=== PATIENT | female | born 1950 | race Caucasian/White ===

== ENCOUNTER 2016-09-30 08:16 | Day surgery (SDC) | payer MEDICARE ==
[~2016-09-30 08:16] MED LIST: Buffered Lidocaine 0.9% SYRIN* 5 ML/SYR SYRINGE INTRADERM ONE; Famotidine TAB* 20 MG PO ONE; Metoclopramide TAB* 10 MG PO ONE; Scopolamine 1.5 mg* PATCH TRANSDERM ONE
[2016-09-30] MEDS ORDERED: Heparin VIAL(*) 5000 UNITS/ML VIAL (FIVE THOUSAND) ONE (08:17)
[2016-09-30] MEDS ORDERED: Famotidine TAB* 20 MG ONE (08:18)
[2016-09-30] MEDS ORDERED: ceFAZolin 2 GM PREMIX(*) 2 GM/50 ML BAG IVPB ONE (08:18)
[2016-09-30] MEDS ORDERED: Scopolamine 1.5 mg* PATCH ONE (08:18)
[2016-09-30] MEDS ORDERED: Metoclopramide TAB* 10 MG ONE (08:19)
[2016-09-30] MEDS ORDERED: Buffered Lidocaine 0.9% SYRIN* 5 ML/SYR SYRINGE ONE (08:56)
[2016-09-30] MEDS ORDERED: Chlorthalidone TAB* 50 MG PO ONE (10:00)
[2016-09-30] MEDS ORDERED: Atenolol TAB* 50 MG PO ONE (10:00)
[2016-09-30] MEDS ORDERED: Midazolam* 1 MG/ML 2 ML VIAL (2 MG) ONE (10:27)
[2016-09-30] MEDS ORDERED: fentaNYL* 50 MCG/ML 2 ML VIAL (100 MCG VIAL) ONE (10:27)
[2016-09-30] MEDS ORDERED: Propofol* 10 MG/ML 20 ML BTL IV PUSH ONE (10:44)
[2016-09-30] MEDS ORDERED: HYDROcodone/ACETAMIN 5-325 MG* 1 TAB PO PRN (10:58)
[2016-09-30] MEDS ORDERED: fentaNYL* 50 MCG/ML 2 ML VIAL (100 MCG VIAL) IV PRN (10:58)
[2016-09-30 13:29] VITALS: BP 106/70
[2016-10-03] MEDS ORDERED: Scopolomine PATCH Remove* 1 NOTE MISC PATCH OFF ONE (06:00)
== END 2016-09-30 13:27 | disposition home or self-care (01) ==
LOC: OR 08:16
PROVIDERS: ATTEND Plastic Surgery
DX: C43.62 Malignant melanoma of left upper limb, including shoulder (principal); E11.9 Type 2 diabetes mellitus without complications; Z79.84 Long term (current) use of oral hypoglycemic drugs; I10 Essential (primary) hypertension; Z87.891 Personal history of nicotine dependence
CPT/HCPCS: 88305; A9270-GY; J0690; J1644; J2250; J2704; J3010